=== PATIENT | male | born 2005 | race Caucasian/White ===

== ENCOUNTER 2024-03-11 13:14 | Emergency (ER) | payer OTHER, SELFPAY ==
[2024-03-11 13:19] VITALS: BP 122/79; PULSE 95; RESP 16; TEMP 37.4; O2SAT 100; BMI 22.3
--- NOTE | 2024-03-11 13:36 | ED_ITS ---
HPI - General Adult General Chief complaint: Allergic Reaction Stated complaint: Allergic reaction to food, has epi, no diff breath Time Seen by Provider: 03/11/24 13:19 Source: patient Mode of arrival: ambulatory Limitations: no limitations History of Present Illness HPI narrative: 18-year-old male coming in today concerned about an allergic reaction. Patient states that just prior to coming to the ER he ate a vegan dameon Ji in the school cafeteria. He took 1 bite of the sloppy Ji in then started feeling tingling in his mouth. 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 He states that in the past he gets a tingling sensation in his mouth and pressure in his throat. He does carry an EpiPen but has never had to use it. He states that he had a similar sensation today and came immediately to the ER. He states that just prior to getting to the ER he vomited once and now he is feeling much better. The tingling in his mouth and the pressure in his throat are 95% better. He denies any rashes or hives. He denies swelling of the lips or the tongue. He denies difficulty breathing or swallowing. He states that he does not currently feel any nausea. Related Data Home Medications ?Medication ?Instructions ?Recorded ?Confirmed fluticasone propionate 110 2 puff inhalation BID 03/11/24 03/11/24 mcg/actuation HFA aerosol inhaler Allergies Allergy/AdvReac Type Severity Reaction Status Date / Time No Known Drug Allergies Allergy Verified 02/06/23 00:35 Review of Systems Status of ROS: Reports: 10 or more systems reviewed and unremarkable except as noted in History and below [facility] Social History Smoking Status: Never smoker How often do you have a drink containing alcohol: never AUDIT-C Alcohol total score: 0 Non-prescribed substance use: denies use service: No Exam Narrative: Exam Narrative: Well-nourished well-developed patient in no acute distress. Alert and oriented. Answers questions appropriately. Mood and affect are appropriate. Thoughts are goal oriented and rational. No tangential or magical thinking noted. Patient speaks in full sentences without needing to catch his breath. Voice sounds normal, speech is not slurred or pressured. HEENT: Normocephalic atraumatic. Pupils are equally round reactive to light. Extraocular muscles are intact. Conjunctivae are moist without any icterus noted. Moist mucous membranes. Posterior pharynx is normal. Neck is soft without any lymphadenopathy or thyromegaly. No masses are appreciated. There is no swelling of the lips, tongue or soft palate. Uvula appears normal. Cardiovascular: Heart is regular rate and rhythm S1 and S2 are present without any murmurs. Lungs: Clear to auscultation bilaterally no wheezes rhonchi or rales are ap preciated. Patient takes deep breaths without any discomfort. Abdomen: Soft and nontender nondistended with normal bowel sounds. Skin: As well perfused without any rashes. Const: Vital Signs, click to edit/add: Vital Signs - 24 hr 03/11/24 13:19 Temperature 99.3 F Pulse Rate [Left P ulse Oximeter] 95 Respiratory Rate 16 Blood Pressure [Ri ght Upper Arm] 122/79 Pulse Oximetry 100 Oxygen Delivery Me thod Room Air Course Vital Signs Vital signs: Initial Vital Signs Temperature 99.3 F 03/11/24 13:19 Temperature Source Temporal Artery Scan 03/11/24 13:19 Pulse Rate 95 03/11/24 13:19 Respiratory Rate 16 03/11/24 13:19 Blood Pressure 122/79 03/11/24 13:19 Blood Pressure Mean 93 03/11/24 13:19 Blood Pressure Position Sitting 03/11/24 13:19 Pulse Oximetry 100 03/11/24 13:19 Oxygen Delivery Method Room Air 03/11/24 13:19 Vital Signs Temperature 99.3 F 03/11/24 13:19 Pulse Rate 95 03/11/24 13:19 Respiratory Rate 16 03/11/24 13:19 Blood Pressure 122/79 03/11/24 13:19 Pulse Oximetry 100 03/11/24 13:19 Oxygen Delivery Method Room Air 03/11/24 13:19 Temperature 99.3 F 03/11/24 13:19 Pulse Rate 95 03/11/24 13:19 Respiratory Rate 16 03/11/24 13:19 Blood Pressure 122/79 03/11/24 13:19 Pulse Oximetry 100 03/11/24 13:19 Oxygen Delivery Method Room Air 03/11/24 13:19 Medical Decision Making MDM Narrative Medical decision making narrative: 18-year-old male with a probable allergic reaction, now feeling significantly better. We did discuss dosing him with Benadryl and steroid prior to discharge but patient states that he does not wish to have any medications at this time. I recommend that he take Benadryl tonight before going to bed. And certainly return to the ER if his symptoms return. Also recommend that he uses EpiPen should he feel any throat pressure. Patient states that he understands all of this, understands that there may be a delayed allergic reaction. Discharge Plan Discharge Clinical Impression: Allergic reaction Patient Disposition: Home, Self-Care Condition: Stable Additional Instructions: I do recommend that you take a Benadryl 25 mg when you get home today or at least 1 before bed. There is always a possibility of a delayed allergic reaction although this is unlikely given that you are already feeling better. If your symptoms return, if you feel difficulty breathing or pressure in your throat, I do recommend you use your EpiPen and return to the ER. Prescriptions: No Action fluticasone propionate 110 mcg/actuation HFA aerosol inhaler 2 puff INHALATION BID Follow Up/Referrals: Provider,Not a Local [Primary Care Provider] - Stand Alone Forms: [employer] Info Instructions
== END 2024-03-11 13:52 | disposition home or self-care (01) ==
LOC: ED 13:45
PROVIDERS: Emergency Provider Family Medicine
DX: R20.2 Paresthesia of skin (principal); T78.1XXA Other adverse food reactions, not elsewhere classified, initial encounter
CPT/HCPCS: 99283